=== PATIENT | female | born 1985 | race Caucasian/White ===

== ENCOUNTER 2018-09-08 09:54 | Inpatient (IN) | payer OTHER ==
[~2018-09-08] VITALS: Ht 162.6 cm; Wt 110.4 kg
[2018-09-08] VITALS (7 sets, daily range): BP systolic 101–144; BP diastolic 52–88
--- NOTE | ~2018-09-08 | EKG ---
[place], [place] ELECTROCARDIOGRAM REPORT NAME: RAVEN HOANG UNIT #: [id number] ROOM: 411 DOCTOR: AUGUST DRAFT REPORT BIRTHDATE: [birth year] [facility] Test Date: 2018-09-08 Test Time: 12:46:09 Pat Name: RAVEN HOANG Department: Room: 411 Gender: F Lung Splitter: Jeane Head : 1985 Requested By: ANNITA YAP Order Number: [id number] Reading MD: Medhat Tolentino MD Measurements Intervals Levels Rate: 73 P: 41 HI: 137 QRS: 49 QRSD: 92 T: 50 QT: 385 QTc: 425 Interpretive Statements Sinus rhythm Baseline wander in lead(s) I,III,aVL Nonspecific ST T changes Electronically Signed On 09-09-2018 4:16:25 PDT by Medhat Tolentino MD CM:EKGRPT:ELECTROCARDIOGRAM REPORT [id number] ANNITA KU DRAFT REPORT ANNITA YAP DO
--- NOTE | ~2018-09-08 | CON ---
[place], [place] REPORT OF CONSULTATION NAME: RAVEN HOANG UNIT #: [id number] ROOM: 411 DOCTOR: FAZAL BARNES MD BIRTHDATE: [birth year] DOS: 09/09/2018 HISTORY OF PRESENT ILLNESS: The patient is a 32-year-old patient who presented to Emergency Room with chief complaint of epigastric pain, persistent. She has been feeling tight in her subxiphoid anatomy with spasm and she had to be admitted for basic workup. The patient's white blood cell was 6.9, H and H of 12 and 37, differential within normal limit. Lactic acid normal. Sed rate was normal. Comprehensive metabolic panel, electrolytes within normal limits. BUN and creatinine 10 and 0.2 are normal. GFR greater than 60. C-reactive protein 0.58. test was negative. Liver function test normal. CT scan of the abdomen and pelvis showed no acute inflammatory or obstructive pathology, compatible with constipation. CBC: White blood cell was 6, H and H was 11 and 35 on followup. Urine cultures remained less than 25,000. Ultrasound of the gallbladder and liver was done, surgically absent gallbladder, no biliary dilation, unremarkable right upper quadrant anatomy. PAST MEDICAL HISTORY: Associated with obesity, otherwise none significantly. PAST SURGICAL HISTORY: , cholecystectomy and D and C. FAMILY HISTORY: Noncontributory. ALLERGIES: Allergies to no medications. SOCIAL HISTORY: Nonsmoker, nonalcohol consumer, avoids carbonated sodas. MEDICATION LIST: List is none at home. REVIEW OF SYSTEMS: HEENT: Denies double vision, blurred vision. RESPIRATORY: Denies shortness of breath. CARDIOVASCULAR: Denies chest pain. DIGESTIVE SYSTEM: Epigastric distress and pain. PLAN AND DISCUSSION: I am going to proceed with an EGD on this patient, most likely hiatal hernia is a problem. This is going to be sorted out through endoscopy. Labs reviewed. Records reviewed. FAZAL BARNES MD CM:CONSTR:REPORT OF CONSULTATION 1312 09/09/18 [id number] interface
--- NOTE | ~2018-09-08 | O ---
[place], [place] OPERATIVE NOTE NAME: RAVEN HOANG UNIT #: [id number] ROOM: 411 DOCTOR: CAMERON BUNN,FAZAL BIRTHDATE: [birth year] DOS: 09/09/2018 The patient has presented with epigastric pain. We are suspicious as far as the source of pathology that she is explaining may be chronic because she is not taking it before her , but in the hospital since yesterday to today she has had a sudden abnormal LFTs with GOT/GPT elevation of 400 plus and 500 plus alkaline phosphatase of 123 and suspected for obstructive pathology. She has had a cholecystectomy and her anatomy otherwise has been unremarkable. There is no biliary dilation. Her H and H has been stable. PROCEDURE: Today's procedure part of investigation is panendoscopy plus biopsy. PREMEDICATION: Propofol. SCOPE: Olympus forward-viewing gastroscope Q10 video. REPORT: After putting the patient in left lateral position and application of lubricant to the scope, the scope was introduced. Thereafter, under direct visualization, I advanced through the length of esophagus without difficulty. Gastric pouch was entered. Bile reflux gastritis seen. Antral biopsy was obtained. Photographic series obtained. Duodenal bulb, second and third part within normal limit. Ampulla of Vater from distance identified. The patient extubated after antral biopsy, tolerated the procedure well. IMPRESSION: Bile reflux gastritis, status post biopsy. PLAN AND DISCUSSION: The patient is going to be chronically on PPI for maintenance, on the other hand over the past 24 hours liver function test dramatically have changed from normal liver function test to the presentation of abnormal LFTs as I have outlined above. Therefore, I am going to send her for MRCP today and if it is suspected to be obstructive pathology, then we will address therapeutically with ERCP. FAZAL BARNES MD CM:OPRECORD:OPERATIVE NOTE [id number] FAZAL BARNES MD 09/09/18 1610 interface
--- NOTE | ~2018-09-08 | WRIGHTHP ---
[place], [place] PATIENT HISTORY AND PHYSICAL EXAM NAME: RAVEN HOANG UNIT #: [id number] ROOM: 411 DOCTOR: CAMERON BUNNFAZAL BIRTHDATE: [birth year] DOS: 09/08/2018 GASTROENDOSCOPIC REPORT SUBJECTIVE: The patient has presented with epigastric pain, sudden conversion of normal LFTs to abnormal LFTs. She is status post cholecystectomy. LFTs were followed and MRI of the abdomen was organized and MRI mentions that the liver is normal. No ascites. No lymphadenopathy. Biliary duct and pancreatic duct are all normal. No dilation, no stone, no filling defects was reported. No stricture was reported. This along with 2 days hepatic function test, which shows GOT and GPT has reduced to 120 and 300 respectively and normalized. Alkaline phosphatase, most likely a passed stone from common duct without complications. Her endoscopy showed bile reflux gastritis. Her labs on records reviewed. MRI reviewed. REVIEW OF SYSTEMS: HEENT: Denies double vision or blurred vision. RESPIRATORY: Denies acute shortness of breath. CARDIOVASCULAR: Denies chest pain. DIGESTIVE SYSTEM: No nausea, vomiting, no diarrhea. PHYSICAL EXAMINATION: GENERAL: Nontoxic patient. VITAL SIGNS: Stable, in Obese patient. HEENT: Head normocephalic, nontraumatic. Mouth and buccal mucosa benign. NECK: Supple, no thyromegaly, no cervical lymphadenopathy. CHEST: Symmetric anatomy, equal expansion. No wheeze, no rhonchi. HEART: Normal sinus rhythm, no gallop, no murmur. ABDOMEN: Soft. No hepato-organomegaly. Bowel sounds present. No pulsatile mass. EXTREMITIES: No cyanosis, no pedal edema. NEUROLOGIC: Alert, oriented to time, place, person. IMPRESSION: Bile reflux gastritis. She needs to stay on at least omeprazole 20 mg 1 daily, past the common duct stone, most likely with conversion of normal LFTs, initially overnight. Abnormal LFTs and subsequently going back to normality. PLAN AND DISCUSSION: To organize discharge and follow up as outpatient. I would recommend an LFTs to be obtained in 1 week. REGULAR: Regular. ACTIVITY: Ad huong. [place], [place] PATIENT HISTORY AND PHYSICAL EXAM NAME: RAVEN HOANG UNIT #: [id number] ROOM: 411 DOCTOR: FAZAL BARNES MD BIRTHDATE: [birth year] FAZAL BARNES MD CM:HISPHYS:PATIENT HISTORY AND PHYSICAL EXAMINATION [id number] FAZAL BARNES MD 09/10/18 1529 interface
[2018-09-08 10:18] LABS: BILIRUBIN NEGATIVE (NEGATIVE); BLOOD NEGATIVE (NEGATIVE); CLARITY SL CLOUDY (CLEAR); COLOR YELLOW (YELLOW); GLUCOSE NEGATIVE (NEGATIVE); KETONE NEGATIVE (NEGATIVE); LEUKO ESTERASE NEGATIVE (NEGATIVE); NITRITE NEGATIVE (NEGATIVE); UROBILINOGEN 0.2 E.U./dl (0.2-1.0)
[2018-09-08 10:27] LABS: BACTERIA 2+; MUCOUS TRACE
[2018-09-08 10:30] LABS: BASO % 0.6 % (0.0-1.0); EOS # 0.1 10*3/uL (0.0-0.4); EOS % 1.3 % (1.0-4.0); HEMATOCRIT 37.1 % (37.0-47.0); HEMOGLOBIN 12.6 g/dl (12.0-16.0); LYMPH # 1.3 10*3/uL (1.3-4.4); LYMPH % 19.1 % (27.0-41.0); MEAN CELL VOLUME 84.5 fl (81.0-99.0); MEAN CORPUSCULAR HGB 28.7 pg (27.0-31.0); MEAN PLATELET VOLUME 9.3 fl (9.6-12.3); MONO # 0.9 10*3/uL (0.1-1.0); MONO % 12.4 % (3.0-9.0); NEUT # 4.6 10*3/uL (2.3-7.9); NEUT % 66.3 % (47.0-73.0); PLATELET COUNT AUTOMATED 195 10*3/uL (130-400); RED BLOOD COUNT 4.39 10*6/uL (4.10-5.10); RED CELL DISTRI WIDTH 12.8 % (0-14.5); WHITE BLOOD COUNT 6.9 10*3/uL (4.8-10.8)
[2018-09-08 10:44] LABS: ALBUMIN 3.3 gm/dl (3.1-4.5); ALKALINE PHOSPHATASE 70 U/L (45-117); BETA-HCG, QUANT < 1.0 mIU/mL (1-3); BUN 10 mg/dl (7-24); CHLORIDE 110 mmol/L (98-107); CREATININE 0.72 mg/dL (0.55-1.02); LIPASE 118 U/L (73-393); POTASSIUM 3.7 mmol/L (3.5-5.1); SGOT/AST 22 IU/L (3-35); SGPT/ALT 22 U/L (12-78); SODIUM 141 mmol/L (136-145); TOTAL PROTEIN 7.1 gm/dL (6.4-8.2)
[2018-09-09] VITALS (9 sets, daily range): BP systolic 105–123; BP diastolic 55–88
[2018-09-09 06:40] LABS: BASO % 0.7 % (0.0-1.0); EOS # 0.1 10*3/uL (0.0-0.4); EOS % 1.8 % (1.0-4.0); HEMOGLOBIN 11.4 g/dl (12.0-16.0); LYMPH # 1.5 10*3/uL (1.3-4.4); LYMPH % 24.9 % (27.0-41.0); MEAN CELL VOLUME 85.8 fl (81.0-99.0); MEAN CORPUSCULAR HGB 27.9 pg (27.0-31.0); MEAN CORPUSCULAR HGB CONC 32.6 g/dl (33.0-37.0); MEAN PLATELET VOLUME 9.7 fl (9.6-12.3); MONO # 0.8 10*3/uL (0.1-1.0); MONO % 12.9 % (3.0-9.0); NEUT # 3.5 10*3/uL (2.3-7.9); NEUT % 59.5 % (47.0-73.0); PLATELET COUNT AUTOMATED 184 10*3/uL (130-400); RED BLOOD COUNT 4.08 10*6/uL (4.10-5.10); RED CELL DISTRI WIDTH 12.9 % (0-14.5)
[2018-09-09 06:58] LABS: ALBUMIN 2.9 gm/dl (3.1-4.5); BUN 5 mg/dl (7-24); CHLORIDE 110 mmol/L (98-107); CHOLESTEROL 91 mg/dL (<200); CREATININE 0.71 mg/dL (0.55-1.02); PHOSPHOROUS 2.4 mg/dL (2.5-4.9); POTASSIUM 3.6 mmol/L (3.5-5.1); SGOT/AST 447 IU/L (3-35); SGPT/ALT 533 U/L (12-78); SODIUM 143 mmol/L (136-145)
[2018-09-09 07:06] LABS: ALKALINE PHOSPHATASE 123 U/L (45-117); FREE T4 0.86 ng/dl (0.76-1.46); HDL CHOLESTEROL 25 mg/dl (40-60); LDL CHOLESTEROL 46 mg/dL (9-159); TOTAL PROTEIN 6.2 gm/dL (6.4-8.2); TRIGLYCERIDES 102 mg/dl (<150); VLDL CHOLESTEROL 20 mg/dL (6-40)
[2018-09-10] VITALS: BP 97/52
[2018-09-10 01:26] VITALS: BP 102/58
[2018-09-10 07:27] LABS: ALBUMIN 3.1 gm/dl (3.1-4.5); BILIRUBIN, DIRECT < 0.1 mg/dL (0.0-0.2); LIPASE 194 U/L (73-393); SGOT/AST 122 IU/L (3-35); SGPT/ALT 307 U/L (12-78)
[2018-09-10 07:29] LABS: ALKALINE PHOSPHATASE 106 U/L (45-117); TOTAL PROTEIN 6.2 gm/dL (6.4-8.2)
[2018-09-10 08:00] VITALS: BP 124/67
[2018-09-10] MEDS ORDERED: PANTOPRAZOLE SO40 MG PO (15:15)
== END 2018-09-10 16:58 | disposition home or self-care (01) | DRG 392 ==
LOC: ED 09:54 → 4E 13:15 → EDHOLD 13:15 → 4E 13:38
PROVIDERS: Emergency Medicine; Internal Medicine Gastroenterology; Registered Nurse
PROC: 0DB68ZX Excision of Stomach, Via Natural or Artificial Opening Endoscopic, Diagnostic (ICD-10-PCS; principal; 2018-09-09)
DX: K29.70 Gastritis, unspecified, without bleeding (principal); E44.0 Moderate protein-calorie malnutrition; Z68.41 Body mass index [BMI] 40.0-44.9, adult; R73.9 Hyperglycemia, unspecified; K80.20 Calculus of gallbladder without cholecystitis without obstruction; E87.8 Other disorders of electrolyte and fluid balance, not elsewhere classified; E66.01 Morbid (severe) obesity due to excess calories; K59.00 Constipation, unspecified; K21.9 Gastro-esophageal reflux disease without esophagitis; R74.0 Nonspecific elevation of levels of transaminase and lactic acid dehydrogenase [LDH]; R74.8 Abnormal levels of other serum enzymes; Z90.49 Acquired absence of other specified parts of digestive tract; Z84.89 Family history of other specified conditions; Z98.51 Tubal ligation status

== ENCOUNTER 2019-04-02 05:56 | Emergency (ER) | payer OTHER ==
[~2019-04-02] VITALS: Ht 162.5 cm; Wt 104.3 kg
[~2019-04-02 05:56] MED LIST: PANTOPRAZOLE SO40 MG PO
[2019-04-02 06:30] LABS: BASO % 0.4 % (0.0-1.0); EOS % 0.3 % (1.0-4.0); HEMATOCRIT 40.1 % (37.0-47.0); HEMOGLOBIN 13.4 g/dl (12.0-16.0); LYMPH # 0.9 10*3/uL (1.3-4.4); LYMPH % 11.3 % (27.0-41.0); MEAN CELL VOLUME 86.4 fl (81.0-99.0); MEAN CORPUSCULAR HGB 28.9 pg (27.0-31.0); MEAN CORPUSCULAR HGB CONC 33.4 g/dl (33.0-37.0); MEAN PLATELET VOLUME 9.6 fl (9.6-12.3); MONO # 1.2 10*3/uL (0.1-1.0); MONO % 15.7 % (3.0-9.0); NEUT # 5.6 10*3/uL (2.3-7.9); PLATELET COUNT AUTOMATED 207 10*3/uL (130-400); RED BLOOD COUNT 4.64 10*6/uL (4.10-5.10); RED CELL DISTRI WIDTH 12.8 % (0-14.5); WHITE BLOOD COUNT 7.7 10*3/uL (4.8-10.8)
[2019-04-02 06:51] LABS: BUN 6 mg/dl (7-24); CHLORIDE 102 mmol/L (98-107); CREATININE 0.93 mg/dL (0.55-1.02); POTASSIUM 3.3 mmol/L (3.5-5.1); SODIUM 138 mmol/L (136-145)
[2019-04-02] MEDS ORDERED: IMODIUM A-D2 M2 PO (09:27)
[2019-04-02] MEDS ORDERED: ZOFRAN4 MG PO (09:27)
[2019-04-02] MEDS ORDERED: AMOXICILLIN500 M2 PO (09:27)
== END 2019-04-02 09:37 | disposition home or self-care (01) ==
LOC: ED 05:56
PROVIDERS: Emergency Medicine Emergency Medical Services
DX: J03.90 Acute tonsillitis, unspecified (principal); K52.9 Noninfective gastroenteritis and colitis, unspecified; E66.01 Morbid (severe) obesity due to excess calories

== ENCOUNTER 2020-05-25 19:01 | Emergency (ER) | payer OTHER ==
[~2020-05-25] VITALS: Ht 162.5 cm; Wt 111.1 kg
[~2020-05-25 19:01] MED LIST changes: +AMOXICILLIN500 M2 PO; +IMODIUM A-D2 M2 PO; +ZOFRAN4 MG PO
[2020-05-25] MEDS ORDERED: PREDNISONE20 M1 PO (20:10)
[2020-05-25] MEDS ORDERED: DIPHENHYDRAMINE50 M1 PO (20:10)
== END 2020-05-25 20:17 | disposition home or self-care (01) ==
LOC: ED 19:01
DX: L23.7 Allergic contact dermatitis due to plants, except food (principal); E66.01 Morbid (severe) obesity due to excess calories

== ENCOUNTER 2020-08-24 18:25 | Emergency (ER) | payer OTHER ==
[~2020-08-24] VITALS: Ht 162.5 cm; Wt 112.5 kg
[~2020-08-24 18:25] MED LIST changes: +DIPHENHYDRAMINE50 M1 PO; +PREDNISONE20 M1 PO
[2020-08-24] MEDS ORDERED: ROBAXIN-750750 MG PO (21:41)
[2020-08-24] MEDS ORDERED: IBUPROFEN600 MG PO (21:41)
== END 2020-08-24 22:10 | disposition home or self-care (01) ==
LOC: ED 18:25
DX: S93.401A Sprain of unspecified ligament of right ankle, initial encounter (principal); S93.601A Unspecified sprain of right foot, initial encounter; M79.672 Pain in left foot; W22.01XA Walked into wall, initial encounter; Y93.89 Activity, other specified; Y92.89 Other specified places as the place of occurrence of the external cause; Y99.8 Other external cause status

== ENCOUNTER 2021-01-11 15:22 | Emergency (ER) | payer OTHER ==
[~2021-01-11] VITALS: Ht 162.5 cm; Wt 113.4 kg
[~2021-01-11 15:22] MED LIST changes: +IBUPROFEN600 MG PO; +ROBAXIN-750750 MG PO
[2021-01-11 16:08] LABS: BASO # 0.1 10*3/uL (0.0-0.1); BASO % 0.7 % (0.0-1.0); EOS # 0.4 10*3/uL (0.0-0.4); EOS % 4.8 % (1.0-4.0); LYMPH # 2.9 10*3/uL (1.3-4.4); LYMPH % 33.3 % (27.0-41.0); MEAN CELL VOLUME 86.4 fl (81.0-99.0); MEAN CORPUSCULAR HGB 28.7 pg (27.0-31.0); MEAN CORPUSCULAR HGB CONC 33.2 g/dl (33.0-37.0); MEAN PLATELET VOLUME 8.9 fl (9.6-12.3); MONO # 0.9 10*3/uL (0.1-1.0); MONO % 10.4 % (3.0-9.0); NEUT # 4.3 10*3/uL (2.3-7.9); NEUT % 50.3 % (47.0-73.0); PLATELET COUNT AUTOMATED 246 10*3/uL (130-400); RED BLOOD COUNT 4.28 10*6/uL (4.10-5.10); RED CELL DISTRI WIDTH 12.4 % (0-14.5); WHITE BLOOD COUNT 8.6 10*3/uL (4.8-10.8)
[2021-01-11 16:25] LABS: ALBUMIN 3.5 gm/dl (3.1-4.5); ALKALINE PHOSPHATASE 88 U/L (45-117); BUN 12 mg/dl (7-24); CHLORIDE 110 mmol/L (98-107); SGOT/AST 14 IU/L (3-35); SGPT/ALT 49 U/L (12-78); SODIUM 141 mmol/L (136-145); TOTAL PROTEIN 6.8 gm/dL (6.4-8.2)
[2021-01-11] MEDS ORDERED: PREDNISONE20 M1 PO (18:57)
== END 2021-01-11 19:34 | disposition home or self-care (01) ==
LOC: ED 15:22
PROVIDERS: Physician Assistant
DX: G50.0 Trigeminal neuralgia (principal); Z79.899 Other long term (current) drug therapy; Z90.49 Acquired absence of other specified parts of digestive tract; Z98.890 Other specified postprocedural states

== ENCOUNTER → 2021-09-14 | Outpatient (CLI) | payer OTHER | END | disposition home or self-care (01) | LOC: COVID19 18:02 | PROVIDERS: ATTEND Internal Medicine | DX: Z11.52 Encounter for screening for COVID-19 (principal) ==

== ENCOUNTER → 2021-11-28 | Outpatient (CLI) | payer OTHER | END | disposition home or self-care (01) | LOC: COVID19 15:34 | PROVIDERS: ATTEND Internal Medicine | DX: Z20.822 Contact with and (suspected) exposure to COVID-19 (principal) ==

== ENCOUNTER 2023-07-30 19:19 | Emergency (ER) | payer OTHER ==
[~2023-07-30] VITALS: Ht 162.5 cm; Wt 102.1 kg
[2023-07-30 19:54] LABS: BASO # 0.1 10*3/uL (0.0-0.1); BASO % 0.4 % (0.0-1.0); EOS # 0.2 10*3/uL (0.0-0.4); EOS % 1.5 % (1.0-4.0); HEMATOCRIT 39.4 % (37.0-47.0); LYMPH # 1.1 10*3/uL (1.3-4.4); LYMPH % 9.8 % (27.0-41.0); MEAN CELL VOLUME 85.8 fl (81.0-99.0); MEAN CORPUSCULAR HGB 29.4 pg (27.0-31.0); MEAN CORPUSCULAR HGB CONC 34.3 g/dl (33.0-37.0); MEAN PLATELET VOLUME 8.9 fl (9.6-12.3); MONO # 1.1 10*3/uL (0.1-1.0); MONO % 9.9 % (3.0-9.0); PLATELET COUNT AUTOMATED 225 10*3/uL (130-400); RED BLOOD COUNT 4.59 10*6/uL (4.10-5.10); RED CELL DISTRI WIDTH 12.3 % (0-14.5); WHITE BLOOD COUNT 11.6 10*3/uL (4.8-10.8)
[2023-07-30 20:14] LABS: ALKALINE PHOSPHATASE 79 U/L (46-116); BUN 8 mg/dl (9-23); CHLORIDE 107 mmol/L (98-107); POTASSIUM 3.7 mmol/L (3.4-5.1); SGPT/ALT 16 U/L (10-49); TOTAL PROTEIN 7.1 gm/dL (6.0-8.0)
[2023-07-30] MEDS ORDERED: ONDANSETRON4 MG SL (22:11)
== END 2023-07-30 22:40 | disposition home or self-care (01) ==
LOC: ED 19:19
PROVIDERS: Internal Medicine
DX: A41.9 Sepsis, unspecified organism (principal); B34.9 Viral infection, unspecified; Z88.8 Allergy status to other drugs, medicaments and biological substances; Z90.49 Acquired absence of other specified parts of digestive tract; Z98.51 Tubal ligation status; Z98.890 Other specified postprocedural states; Z20.822 Contact with and (suspected) exposure to COVID-19

== ENCOUNTER 2025-02-19 15:27 | Emergency (ER) | payer OTHER ==
[~2025-02-19] VITALS: Ht 162.5 cm; Wt 115.7 kg
[~2025-02-19 15:27] MED LIST changes: +ONDANSETRON4 MG SL
[2025-02-19] MEDS ORDERED: SODIUM CHLORIDE 0.9% 1,000 ML IV ONE (15:55)
[2025-02-19] MEDS ORDERED: Ondansetron Hydrochloride 4 MG/2 ML VIAL IV ONE (16:00)
[2025-02-19 16:18] LABS: BASO # 0.1 10*3/uL (0.0-0.1); BASO % 0.7 % (0.0-1.0); EOS # 0.1 10*3/uL (0.0-0.4); EOS % 1.7 % (1.0-4.0); HEMATOCRIT 38.8 % (37.0-47.0); MEAN CORPUSCULAR HGB 28.6 pg (27.0-31.0); MEAN CORPUSCULAR HGB CONC 33.2 g/dl (33.0-37.0); MEAN PLATELET VOLUME 9.2 fl (9.6-12.3); MONO # 0.9 10*3/uL (0.1-1.0); MONO % 11.4 % (3.0-9.0); NEUT # 4.4 10*3/uL (2.3-7.9); PLATELET COUNT AUTOMATED 244 10*3/uL (130-400); RED BLOOD COUNT 4.51 10*6/uL (4.10-5.10); RED CELL DISTRI WIDTH 12.6 % (0-14.5); WHITE BLOOD COUNT 8.1 10*3/uL (4.8-10.8)
[2025-02-19 16:18] LABS: BILIRUBIN Negative (Negative); BLOOD Negative (Negative); CLARITY Clear (Clear); COLOR Yellow (Yellow); GLUCOSE Negative (Negative); KETONE Negative (Negative); LEUKO ESTERASE Negative (Negative); NITRITE Negative (Negative); PH 5.5 (4.5-8.0); UROBILINOGEN 0.2 E.U./dl (0.0-1.0)
[2025-02-19 16:25] LABS: RBC 0-2 rbc/hpf (0-2); WBC 0-2 wbc/hpf (0-5)
[2025-02-19 16:35] LABS: BUN 13 mg/dl (9-23); CHLORIDE 105 mmol/L (98-107); POTASSIUM 3.9 mmol/L (3.4-5.1)
[2025-02-19] MEDS ORDERED: Ketorolac Tromethamine 30 MG/ML VIAL IV ONE (16:50)
[2025-02-19] MEDS ORDERED: PYRIDIUM100 MG PO (19:21)
== END 2025-02-19 19:31 | disposition home or self-care (01) ==
LOC: ED 15:27
PROVIDERS: Nurse Practitioner Family
DX: R30.0 Dysuria (principal); R10.9 Unspecified abdominal pain; R35.0 Frequency of micturition; R39.15 Urgency of urination; E66.01 Morbid (severe) obesity due to excess calories; Z88.6 Allergy status to analgesic agent; Z79.899 Other long term (current) drug therapy; Z68.30 Body mass index [BMI] 30.0-30.9, adult; Z90.49 Acquired absence of other specified parts of digestive tract

== ENCOUNTER 2025-04-02 16:42 | Emergency (ER) | payer OTHER ==
[~2025-04-02] VITALS: Ht 172.7 cm; Wt 72.6 kg
[~2025-04-02 16:42] MED LIST changes: +PYRIDIUM100 MG PO
[2025-04-02 17:20] LABS: URINE AMPHETAMINES Negative (1000ng/ml); URINE BARBITURATES Negative (200ng/ml); URINE BENZODIAZEPINES Negative (200ng/ml); URINE CANNABINOIDS (THC) Negative (50ng/ml); URINE COCAINE Negative (300ng/ml); URINE METHADONE Negative (300ng/ml); URINE OPIATES Negative (300ng/ml); URINE PHENCYCLIDINE Negative (25ng/ml)
[2025-04-02 17:31] LABS: BASO % 0.5 % (0.0-1.0); EOS # 0.1 10*3/uL (0.0-0.4); EOS % 1.6 % (1.0-4.0); HEMATOCRIT 38.9 % (37.0-47.0); MEAN CELL VOLUME 84.2 fl (81.0-99.0); MEAN CORPUSCULAR HGB 28.1 pg (27.0-31.0); MEAN CORPUSCULAR HGB CONC 33.4 g/dl (33.0-37.0); MEAN PLATELET VOLUME 8.7 fl (9.6-12.3); MONO # 1.1 10*3/uL (0.1-1.0); MONO % 13.6 % (3.0-9.0); NEUT # 4.1 10*3/uL (2.3-7.9); NEUT % 51.3 % (47.0-73.0); PLATELET COUNT AUTOMATED 239 10*3/uL (130-400); RED BLOOD COUNT 4.62 10*6/uL (4.10-5.10)
[2025-04-02 18:01] LABS: BUN 10 mg/dl (9-23); CHLORIDE 105 mmol/L (98-107); POTASSIUM 3.3 mmol/L (3.4-5.1)
[2025-04-02] MEDS ORDERED: predniSONE 20 MG TAB PO ONE (18:35)
== END 2025-04-02 19:00 | disposition home or self-care (01) ==
LOC: ED 16:42
PROVIDERS: Emergency Medicine
DX: R20.0 Anesthesia of skin (principal); R51.9 Headache, unspecified; R07.89 Other chest pain; Z88.6 Allergy status to analgesic agent; Z79.899 Other long term (current) drug therapy; Z90.49 Acquired absence of other specified parts of digestive tract

== ENCOUNTER 2025-04-07 11:54 | Emergency (ER) | payer OTHER ==
[~2025-04-07] VITALS: Ht 162.5 cm; Wt 115.7 kg
[2025-04-07] MEDS ORDERED: LEADER NATUR1000 MCG PO (12:34)
[2025-04-07] MEDS ORDERED: SUMATRIPTAN SUC25 M1 PO (12:34)
[2025-04-07] MEDS ORDERED: IOHEXOL 350 MG/ML 100 ML VIAL IV ONE ×2 (14:15→14:34)
[2025-04-07] MEDS ORDERED: SODIUM CHLORIDE 0.9% 100 ML BAG IV ONE (14:15)
[2025-04-07] MEDS ORDERED: SODIUM CHLORIDE 0.9% 100 ML IV ONE (14:34)
[2025-04-07] MEDS ORDERED: METHOCARBAMOL750 M1 PO (15:31)
== END 2025-04-07 15:38 | disposition home or self-care (01) ==
LOC: ED 11:54
DX: R51.9 Headache, unspecified (principal); Z79.899 Other long term (current) drug therapy; Z88.5 Allergy status to narcotic agent; Z90.49 Acquired absence of other specified parts of digestive tract; Z98.890 Other specified postprocedural states